=== PATIENT | male | born 1970 | race Caucasian/White ===

== ENCOUNTER 2019-02-06 06:40 | Emergency (ER) | payer SELFPAY ==
--- NOTE | 2019-02-06 07:09 | ER Document Report ---
ED General - General Chief Complaint: Flank Pain Stated Complaint: BACK PAIN Time Seen by Provider: 02/06/19 07:03 - HPI Patient complains to provider of: Flank pain sharp throbbing in nature Notes: 48-year-old man with history of kidney stone presents with sharp left flank pain 10/10 without radiation nothing makes it better or worse. Patient had an episode of this intense pain about 2 weeks ago but then got better. Patient has history of requiring lithotripsy for large kidney stones in the past. Denies fever, chills, nausea, vomiting or any other symptoms. Denies hematuria or discharge - Related Data Allergies/Adverse Reactions: seafood Allergy (Severe, Uncoded 02/06/19 07:34) Past Medical History - Social History Smoking Status: Unknown if Ever Smoked Family History: None Review of Systems - Review of Systems Constitutional: No symptoms reported EENT: No symptoms reported Cardiovascular: No symptoms reported Respiratory: No symptoms reported Gastrointestinal: No symptoms reported Genitourinary: No symptoms reported Male Genitourinary: No symptoms reported Musculoskeletal: No symptoms reported Skin: No symptoms reported Hematologic/Lymphatic: No symptoms reported Neurological/Psychological: No symptoms reported Physical Exam - Vital signs Interpretation: Normal - General General appearance: Appears well, Alert - HEENT Head: Normocephalic, Atraumatic Eyes: Normal Pupils: PERRL - Respiratory Respiratory status: No respiratory distress Chest status: Nontender Breath sounds: Normal Chest palpation: Normal - Cardiovascular Rhythm: Regular Heart sounds: Normal auscultation Murmur: No - Abdominal Inspection: Normal Distension: No distension Bowel sounds: Normal Tenderness: Nontender Organomegaly: No organomegaly - Back Back: Normal, Nontender - Extremities General upper extremity: Normal inspection, Nontender, Normal color, Normal ROM, Normal temperature General lower extremity: Normal inspection, Nontender, Normal color, Normal ROM, Normal temperature, Normal weight bearing. No: Arleen's sign - Neurological Neuro grossly intact: Yes Cognition: Normal Orientation: AAOx4 Gill Coma Scale Eye Opening: Spontaneous Gill Coma Scale Verbal: Oriented [place] Coma Scale Motor: Obeys Commands [place] Coma Scale Total: 15 Speech: Normal Motor strength normal: LUE, RUE, LLE, RLE Sensory: Normal - Psychological Associated symptoms: Normal affect, Normal mood - Skin Skin Temperature: Warm Skin Moisture: Dry Skin Color: Normal Course - Re-evaluation Re-evalutation: 02/06/19 07:09 48-year-old man with history of kidney stones presents with intense left flank pain., Vital signs are stable within normal limits 02/06/19 08:54 Extensive lab work-up unremarkable, no signs of infection negative leukocytosis, no kidney injury. Patient's CAT scan abdomen pelvis is unremarkable. On reevaluation patient is positive straight leg on the left. Has suspicions actually sciatic and back pain that debilitating the patient. Patient given additional IV opioid therapy and steroid dose. Will be discharged home with more oral analgesia, steroids, follow-up at spine surgeon - Laboratory Result Diagrams: 02/06/19 07:43 02/06/19 07:43 Laboratory results interpreted by me: 02/06/19 02/06/19 07:43 07:43 RBC 5.64 H Hgb 17.2 H Urine Urobilinogen 2.0 H Ur Leukocyte Esterase TRACE H Discharge - Discharge Clinical Impression: Back pain Qualifiers: Back pain location: low back pain Chronicity: chronic Back pain laterality: left Sciatica presence: with sciatica Sciatica laterality: sciatica of left side Qualified Code(s): M54.42 - Lumbago with sciatica, left side; G89.29 - Other chronic pain Condition: Stable Disposition: HOME, SELF-CARE Instructions: Sciatica ([facility]) Prescriptions: Methylprednisolone [Medrol Dosepack (4 mg/Tab) 21 Tab/Dosepak] 21 tab PO ASDIR PRN 1 Days #21 dspk PRN Reason: Oxycodone HCl [Roxicodone] 5 mg PO Q4H #15 tablet
[2019-02-06] MEDS ORDERED: KETOROLAC TROMETHAMINE INJ/PF 30 MG/1 ML SDV IV ONE (07:10)
[2019-02-06] MEDS ORDERED: NORMAL SALINE 1000 ML 1,000 ML IV ONE (07:11)
[2019-02-06 07:54] LABS: ABSOLUTE BASOPHILS # (AUTO) 0.1 10^3/uL (0.0-0.2); ABSOLUTE EOSINOPHILS # (AUTO) 0.1 10^3/uL (0.0-0.6); ABSOLUTE LYMPHOCYTES (AUTO) 1.9 10^3/uL (0.5-4.7); ABSOLUTE MONOCYTES (AUTO) 0.8 10^3/uL (0.1-1.4); ABSOLUTE NEUT (AUTO) 4.4 10^3/uL (1.7-8.2); BASOPHILS % (AUTO) 1.3 % (0-2); EOSINOPHILS % (AUTO) 1.1 % (0-6); HEMATOCRIT 50.6 % (37.9-51.0); HEMOGLOBIN 17.2 g/dL (13.5-17.0); LYMPHOCYTES % (AUTO) 26.3 % (13-45); MEAN CORPUSCULAR HEMOGLOBIN 30.4 pg (27.0-33.4); MEAN CORPUSCULAR HGB CONC 33.9 g/dL (32.0-36.0); MEAN CORPUSCULAR VOLUME 90 fl (80-97); MONOCYTES % (AUTO) 10.6 % (3-13); PLATELET COUNT 195 10^3/uL (150-450); RED BLOOD COUNT 5.64 10^6/uL (4.35-5.55); RED CELL DISTRIBUTION WIDTH 13.1 % (11.5-14.0); SEGMENTED NEUTROPHILS % (AUTO) 60.7 % (42-78); TOTAL CELLS COUNTED % (AUTO) 100 %; WHITE BLOOD COUNT 7.3 10^3/uL (4.0-10.5)
[2019-02-06 07:59] LABS: APPEARANCE,URINE SLIGHTLY-CLOUDY; BILIRUBIN,URINE NEGATIVE (NEGATIVE); GLUCOSE, URINE NEGATIVE (NEGATIVE); KETONES,URINE NEGATIVE (NEGATIVE); LEUKOCYTE ESTERASE,URINE TRACE (NEGATIVE); NITRITE,URINE NEGATIVE (NEGATIVE); PROTEIN,URINE NEGATIVE (NEGATIVE); URINE SPECIFIC GRAVITY 1.027
[2019-02-06 08:00] LABS: COLOR,URINE YELLOW
[2019-02-06 08:10] LABS: ANION GAP 7 (5-19); BLOOD UREA NITROGEN 16 mg/dL (7-20); CALCIUM 9.4 mg/dL (8.4-10.2); CARBON DIOXIDE 28 mmol/L (22-30); CHLORIDE 107 mmol/L (98-107); GLUCOSE 88 mg/dL (75-110); POTASSIUM 4.5 mmol/L (3.6-5.0); SODIUM 142.4 mmol/L (137-145)
--- NOTE | 2019-02-06 08:27 | RADIOLOGY REPORT (SQ) ---
EXAM DESCRIPTION: CT ABD/PELVIS NO ORAL OR IV COMPLETED DATE/TIME: 02/06/2019 8:02 am REASON FOR STUDY: left flank pain COMPARISON: None. TECHNIQUE: CT scan of the abdomen and pelvis performed without intravenous or oral contrast. Images reviewed with lung, soft tissue, and bone windows. Reconstructed coronal and sagittal MPR images revi ewed. All images stored on PACS. All CT scanners at this facility use dose modulation, iterative reconstruction, and/or weight based d osing when appropriate to reduce radiation dose to as low as reasonably achievable (ALARA). [facility]: Dose Right [facility]: CareDose [facility]: Dose Right [facility]: Teradose 4D [facility]: [employer] RADIATION DOSE: CT Rad equipment meets quality standard of care and radiation dose reduction techniq ues were employed. CTDIvol: 17.0 mGy. DLP: 994 mGy-cm.mGy. LIMITATIONS: None. FINDINGS: LOWER CHEST: No significant findings. No nodules or infiltrates. NON-CONTRASTED LIVER, SPLEEN, ADRENALS: Evaluation limited by lack of IV contrast. No identified sign ificant masses. PANCREAS: No masses. No peripancreatic inflammatory changes. GALLBLADDER: No identified stones by CT criteria. No inflammatory changes to suggest cholecystitis. RIGHT KIDNEY AND URETER: No suspicious masses. Assessment limited by lack of IV contrast. No signif icant calcifications. No hydronephrosis or hydroureter. LEFT KIDNEY AND URETER: No suspicious masses. Assessment limited by lack of IV contrast. No signifi cant calcifications. No hydronephrosis or hydroureter. AORTA AND RETROPERITONEUM: No aneurysm. No retroperitoneal masses or adenopathy. BOWEL AND PERITONEAL CAVITY: There is colonic diverticulosis status post sigmoid resection. No evide nce of acute diverticulitis. APPENDIX: Surgically absent. PELVIS, BLADDER, AND ABDOMINAL WALL:No abnormal masses. No free fluid. Bladder normal. BONES: Bilateral pars defects at L5. OTHER: No other significant finding. IMPRESSION: 1. No acute noncontrast CT findings to explain left flank pain. No evidence of urinary tract calculus or hydronephrosis. 2. Diverticulosis without evidence of acute diverticulitis. Postoperative findings of prior sigmoid resection. COMMENT: Quality ID # [id number]: Final reports with documentation of one or more dose reduction techniques (e.g., Automated exposure control, adjustment of the mA and/or kV according to patient size, use of iterative reconstruction technique) TECHNICAL DOCUMENTATION: JOB ID: [id number] [employer] All Rights Reserved Reading location - IP/workstation name: [email or web address]
[2019-02-06] MEDS ORDERED: HYDROMORPHONE HCL INJ/PF 2 MG/ML AMPULE IV ONE (08:54)
[2019-02-06] MEDS ORDERED: DEXAMETHASONE SOD PHOS INJ 10 MG/1 ML VIAL IV ONE (08:54)
[2019-02-06 09:52] VITALS: BP 135/87
== END 2019-02-06 09:52 | disposition home or self-care (01) ==
LOC: ER 06:40
DX: M54.42 Lumbago with sciatica, left side (principal); G89.29 Other chronic pain; R10.9 Unspecified abdominal pain; Z87.442 Personal history of urinary calculi; Z91.013 Allergy to seafood
CPT/HCPCS: 99284; 96361; 96374; 96375; 36415; 85025; 80048; 81001; 74176; J1885; J1170; J7030; J1100